=== PATIENT | female | born 1975 | race Hispanic/Latino ===

== ENCOUNTER 2020-10-15 14:37 | Emergency (ER) | payer MEDICARE ==
[~2020-10-15] VITALS: Ht 175.3 cm; Wt 105.2 kg
[2020-10-15] MEDS ORDERED: HYDROCODONE/APAP 10MG-325MG TAB PO ONE (15:00)
[2020-10-15] MEDS ORDERED: NAPROXEN250 MG PO (16:30)
== END 2020-10-15 17:00 | disposition home or self-care (01) ==
LOC: ER 14:54
DX: S83.92XA Sprain of unspecified site of left knee, initial encounter (principal); M25.562 Pain in left knee; W10.8XXA Fall (on) (from) other stairs and steps, initial encounter; Y93.01 Activity, walking, marching and hiking; Y92.008 Other place in unspecified non-institutional (private) residence as the place of occurrence of the external cause; E11.9 Type 2 diabetes mellitus without complications
CPT/HCPCS: 99284